=== PATIENT | male | born 1955 | race Caucasian/White ===

== ENCOUNTER 2021-04-13 13:05 | Outpatient (CLI) | payer MEDICARE, SELFPAY ==
--- NOTE | 2021-04-13 13:18 | ECHO_ITS ---
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 History/Risk Factors Hypertension: No Dyslipidemia: No Congenital Heart Disease (CHD): No Diabetic Therapy: Insulin Peripheral Arterial Disease (PAD): No Chronic Lung Disease: No Obesity: Yes Renal Disease: No Coronary Artery Disease (CAD) No Congestive Heart Failure (CHF): Hx CHF Cardiomyopathy/LV Systolic Dysfunction: No Diabetes Mellitus: Type II COPD: No Tobacco Use: Never Cerebrovascular Disease: No Family History: Congenital Heart Disease Deep Vein Thrombosis (DVT): None Frailty Scale (CSHA): 2: Well Cardiac Arrest: No Prior Interventions Pacemaker: Yes Summary 1. Complete two-dimensional, color flow and Doppler transthoracic echocardiogram is performed. 2. Left ventricular chamber dimension is normal. 3. Left ventricular systolic function is normal, estimated at 65-70%. 4. There is mildly increased left ventricular wall thickness. 5. Left ventricular septal wall motion is abnormal with septal motion related to bundle branch block. 6. The left ventricular diastolic function is abnormal. 7. E/e' 18 is elevated. 8. The aortic valve is not well visualized. 9. There is no obvious aortic valve stenosis. However, valve area, gradients and peak velocity was not assessed. 10. There is trace mitral valve regurgitation. 11. Trace tricuspid regurgitation. 12. Moderate pulmonary hypertension, estimated pulmonary arterial systolic pressure is 51 mmHg. 13. Dilated inferior vena cava with >50% collapse upon inspiration consistent with elevated right atrial pressure, 10 mmHg. Recommendations * Continue medical therapy for diabetes. Left Ventricle E/e' 18 is elevated. Left ventricular chamber dimension is normal. Left ventricular systolic function is normal, estimated at 65-70%. There is mildly increased left ventricular wall thickness. Left ventricular septal wall motion is abnormal with septal motion related to bundle branch block. The left ventricular diastolic function is abnormal. Right Ventricle Right ventricular systolic function is normal and with normal TAPSE 2.3 cm. Right ventricular chamber dimension is normal. Left Atria Left atrial chamber dimension is normal. Right Atria Right atrial chamber dimension is normal. Aortic Valve There is no obvious aortic valve stenosis. However, valve area, gradients and peak velocity was not assessed. The aortic valve is not well visualized. There is no aortic valve regurgitation. Pulmonic Valve There is no pulmonic regurgitation. Mitral Valve There is no mitral valve stenosis. There is trace mitral valve regurgitation. Tricuspid Valve Trace tricuspid regurgitation. Moderate pulmonary hypertension, estimated pulmonary arterial systolic pressure is 51 mmHg. Pericardium/Pleural
== END 2021-04-13 13:06 | disposition home or self-care (01) ==
LOC: CHSIMG 13:12
PROVIDERS: PCP Family Medicine
DX: I35.8 Other nonrheumatic aortic valve disorders (principal)
CPT/HCPCS: 93306